=== PATIENT | male | born 1985 | race Hispanic/Latino ===

== ENCOUNTER 2023-05-15 11:54 | Emergency (ER) | payer SELFPAY ==
--- OUTSIDE RECORDS SUMMARY | 2023-05-15 11:57 | XMS REPORT | Continuity of Care Document ---
:1985 Author Organization [facility] t Address [address] [place] [address] [place] [id number] Care Team Providers Name Role Phone Unavailable Unavailable Unavailable Problems This patient has no known problems. Allergies, Adverse Reactions, Alerts This patient has no known allergies or adverse reactions. Medications This patient has no known medications. Procedures This patient has no known procedures. Encounters Start End Encounter Admission Attending Care Care Encounter Source Date/Time Date/Time Type Type Clinicians Facility Department ID 2023-02-13 2023-02-13 Outpatient BRYAN ADAMS [id number] 16:16:06 16:16:06 [id number] Results This patient has no known results.
[2023-05-15 12:51] LABS: Absolute Lymphocytes (CBC) 1.2 K/uL (0.7-4.9); Hematocrit 50.4 % (39.6-49.0); MCV 97.6 fL (80-100); MPV 7.6 fL (7.6-11.3); Platelets 320 thou/uL (152-406); RBC Red Blood Cell Count 5.16 M/uL (4.33-5.43)
[2023-05-15 12:58] LABS: Protime INR 1.04
[2023-05-15 13:05] LABS: Potassium 3.8 mEq/L (3.5-5.1)
--- NOTE | 2023-05-15 13:40 | ER ---
Nurse's Notes [facility] Name: Jagjit Ivory Age: 38 yrs Sex: Male : 1985 Arrival Date: 05/15/2023 Time: 11:54 Bed IW1 Private MD: Diagnosis: Pain in right leg Presentation: 05/15 12:22 Chief complaint: Patient states: he woke up this morning with left upper thigh pain. ap3 patient rates his pain a 5/10 on the pain scale. patient states he hit his his leg with a dumbbell yesterday. Coronavirus screen: At this time, the client does not indicate any symptoms associated with coronavirus-19. Ebola Screen: No symptoms or risks identified at this time. Initial Sepsis Screen: Does the patient meet any 2 criteria? No. Patient's initial sepsis screen is negative. Does the patient have a suspected source of infection? No. Patient's initial sepsis screen is negative. Risk Assessment: Do you want to hurt yourself or someone else? Patient reports no desire to harm self or others. Onset of symptoms was May 15, 2023. 12:22 Method Of Arrival: Wheelchair ap3 12:25 Acuity: SAUNDRA 4 ap3 Triage Assessment: 12:24 General: Appears uncomfortable, Behavior is calm, cooperative, appropriate for age. ap3 Pain: Complains of pain in right quadriceps Pain currently is 5 out of 10 on a pain scale. Neuro: Level of Consciousness is awake, alert, obeys commands, Oriented to person, place, time, situation. Cardiovascular: Patient's skin is warm and dry. 12:25 Respiratory: Airway is patent Respiratory effort is even, unlabored, Respiratory ap3 pattern is regular, symmetrical. Musculoskeletal: Swelling present in right quadriceps. Historical: - Allergies: 12:27 No Known Allergies; ap3 - Home Meds: 12:27 None [Active]; ap3 - PMHx: 12:27 Asthma; ap3 - Immunization history:: Client reports receiving the 2nd dose of the Covid vaccine. - Social history:: Smoking status: Patient reports the use of cigarette tobacco products, denies chronic smoking, but will smoke occasionally. - Family history:: not pertinent. - Hospitalizations: : No recent hospitalization is reported. Screenin:25 Abuse screen: Denies threats or abuse. Nutritional screening: No deficits noted. ap3 Tuberculosis screening: No symptoms or risk factors identified. 14:04 [facility] ED Fall Risk Assessment (Adult) History of falling in the last 3 months, ap3 including since admission No falls in past 3 months (0 pts). Vital Signs: 12:22 BP 151 / 87; Pulse 97; Resp 18; Temp 98.5; Pulse Ox 98% on R/A; Pain 5/10; ap3 12:22 Pain Scale: Adult ap3 ED Course: 11:56 Patient arrived in ED. rg4 11:58 Brandon Lee MD is Attending Physician. rn 12:24 Triage completed. ap3 12:26 Arm band placed on right wrist. ap3 12:46 Initial lab(s) drawn, by me, sent to lab. Inserted saline lock: 22 gauge in left kj1 antecubital area, using aseptic technique. Blood collected. 14:04 Provided Education on: discharge instructions. ap3 14:04 Patient has correct armband on for positive identification. ap3 14:04 No provider procedures requiring assistance completed. IV discontinued, intact, ap3 bleeding controlled, No redness/swelling at site. Pressure dressing applied. Administered Medications: No medications were administered Medication: 14:04 VIS not applicable for this client. ap3 Outcome: 13:39 Discharge ordered by . rn 14:04 Discharged to home ambulatory, with family, ap3 14:04 Condition: good 14:04 Discharge instructions given to patient, Instructed on discharge instructions, follow up and referral plans. Demonstrated understanding of instructions, follow-up care, 14:04 Patient left the ED. ap3 Signatures: Brandon Lee MD MD rn Garcia, Rubi rg4 Omayra Hope RN RN ap3 Josefina Chairez kj1 Corrections: (The following items were deleted from the chart) 12:25 12:22 Chief complaint: Patient states: he woke up this morning with left upper thigh ap3 pain. patient rates his pain a 5/10 on the pain scale. patient denies any recent trauma to the area. ap3 12:25 12:22 Acuity: SAUNDRA 3 ap3 ap3 12:27 12:27 PMHx: None; ap3 ap3
--- NOTE | 2023-05-15 13:40 | EDPHYS ---
Physician Documentation [facility] Name: Jagjit Ivory Age: 38 yrs Sex: Male : 1985 Arrival Date: 05/15/2023 Time: 11:54 Bed IW1 Private MD: ED Physician Brandon Lee HPI: 05/15 13:33 This 38 yrs old Male presents to ER via Wheelchair with complaints of Leg Pain.rn 13:33 The patient presents with an injury, pain, swelling. The complaints affect the right rn quadriceps. Onset: The symptoms/episode began/occurred yesterday. Modifying factors: The symptoms are alleviated by nothing. the symptoms are aggravated by movement. Severity of symptoms: At their worst the symptoms were moderate, in the emergency department the symptoms are unchanged. The patient has not experienced similar symptoms in the past. Patient reports right leg pain, located mainly right quadriceps region, began about an hour after striking his leg accidentally with a dumbbell. Denies any other injury. No fever or chills. Patient reports woke up with more swelling today. This is never happened to him before.. Historical: - Allergies: 12:27 No Known Allergies; ap3 - Home Meds: 12:27 None [Active]; ap3 - PMHx: 12:27 Asthma; ap3 - Immunization history:: Client reports receiving the 2nd dose of the Covid vaccine. - Social history:: Smoking status: Patient reports the use of cigarette tobacco products, denies chronic smoking, but will smoke occasionally. - Family history:: not pertinent. - Hospitalizations: : No recent hospitalization is reported. ROS: 13:33 Constitutional: Negative for fever, chills, and weight loss, Cardiovascular: Negative rn for chest pain, palpitations, and edema, Respiratory: Negative for shortness of breath, cough, wheezing, and pleuritic chest pain, Abdomen/GI: Negative for abdominal pain, nausea, vomiting, diarrhea, and constipation, Back: Negative for injury and pain, MS/Extremity: Positive for pain and injury to right thigh Skin: Negative for injury, rash, and discoloration, Neuro: Negative for headache, weakness, numbness, tingling, and seizure, Exam: 13:33 Constitutional: This is a well developed, well nourished patient who is awake, alert, rn and in no acute distress. Cardiovascular: Regular rate and rhythm. No pulse deficits. Respiratory: No increased work of breathing, no retractions or nasal flaring. MS/ Extremity: Pulses equal, no cyanosis. Neurovascular intact. Painful range of motion right thigh but able to ambulate on his own. On exam feels like hematoma but does not have any skin discoloration. No crepitus. No fluctuance. No warmth. No open wounds. No bony tenderness. Vital Signs: 12:22 BP 151 / 87; Pulse 97; Resp 18; Temp 98.5; Pulse Ox 98% on R/A; Pain 5/10; ap3 12:22 Pain Scale: Adult ap3 MDM: 11:58 Patient medically screened. rn 13:33 Differential diagnosis: closed fracture, contusion, Muscle injury, hematoma, tendon rn injury, myositis, fasciitis. Data reviewed: vital signs, nurses notes. Refusal of service: The patient/guardian displays adequate decision making capability and despite a detailed discussion of alternatives, benefits, risks, and consequences refuses: CT Scan, Medications, all X-rays, Ultrasound. ED course: Notified by nurse that patient refuses any and all imaging. I went to the lobby to speak with patient and explained to him that has a high white blood cell count that could indicate deep space infection and I would like to obtain an ultrasound/x-ray/CAT scan of the right lower extremity to further investigate. He believes that this is from the dumbbell injury and refuses further testing or treatment. Understands the risks of his decision and states will return if gets worse. I told him it is strange that there is no skin discoloration and he is blaming a blunt injury as cause of pain and swelling. Patient is afebrile but explained to him that it could be a deeper process. Spoke with patient on 2 separate occasions and he did not change his mind, insists on going home without further treatment or investigation.. 05/15 12:28 Order name: CBC with Diff rn 05/15 12:28 Order name: Basic Metabolic Panel; Complete Time: 13:25 rn 05/15 12:28 Order name: Protime (+inr); Complete Time: 13:25 rn 05/15 12:28 Order name: Ptt, Activated; Complete Time: 13: rn 05/15 12:28 Order name: IV Start; Complete Time: 12:45 rn Administered Medications: No medications were administered Disposition Summary: 05/15/23 13:39 Discharge Ordered Notes: Location: Home rn Problem: new rn Symptoms: are unchanged rn Condition: Stable rn Diagnosis - Pain in right leg rn Followup: rn - With: Private Physician - When: 1 - 2 days - Reason: Recheck today's complaints, Re-evaluation by your physician Discharge Instructions: - Discharge Summary Sheet rn - Musculoskeletal Pain rn - Pain Without a Known Cause rn Forms: - Medication Reconciliation Form rn - Thank You Letter rn - Antibiotic red lead burner - Prescription Opioid Use rn - Patient Portal Instructions rn - Leadership Thank You Letter rn Signatures: Dispatcher [employer] EDMS Brandon Lee MD MD rn Prokisch, Amanda, RN RN ap3 Corrections: (The following items were deleted from the chart) 12:27 12:27 PMHx: None; ap3 ap3 12:59 12:33 Lower Extremity W/ Cont ordered. EDMS EDMS
[2023-05-15 14:14] VITALS: BP 151/87; TEMP 98.5; O2SAT 98
[2023-05-15 14:31] LABS: Blood Morphology Comment NOT SEEN (NOT SEEN); Platelet Estimate ADEQ; White Blood Cell Scan OK (OK)
== END 2023-05-15 14:04 | disposition home or self-care (01) ==
LOC: ER 11:54
DX: M79.604 Pain in right leg (principal)
CPT/HCPCS: 36415; 80048; 85025; 85610; 85730; 99283